=== PATIENT | female | born 1980 | race Caucasian/White ===

== ENCOUNTER 2020-10-14 10:59 | Emergency (ER) | payer MEDICARE ==
[~2020-10-14 10:59] MED LIST: ADVAIR 500-501 EACH INH; AIMOVIG AU70 MG/1 ML SC; BIOTIN5000 MCG PO; CARTIA XT180 MG PO; CELEXA10 MG PO; CELEXA20 MG PO; CITRACAL + D E1 EACH PO; CYMBALTA60 MG PO; DULERA 100 MCG8.8 GM PO; DULOXETINE HCL30 MG PO; FLEXERIL10 MG PO; GABAPENTIN300 MG PO; MAG-OXIDE 400M400 MG PO; MONTELUKAST SOD10 MG PO; NUCALA100 MG SC; PANTOPRAZOLE SO40 MG PO; PERCOCET 5-3251 EACH PO; PREDNISONE 20MG20 MG PO; PRENATAL FORMU1 EACH PO; PROTONIX 40MG T40 MG PO; RIZATRIPTAN10 M1 PO; SPIRIVA RESPIMAT4 G1 PO; THEOPHYLLINE 3300 MG PO; TOPAMAX50 MG PO; TOPIRAMATE ER150 MG PO; VENTOLIN (2.5 MG/3 M INH; VENTOLIN (2.5 MG/3 M PO; VITAMIN B122500 MCG PO; VITAMIN D350 MC3 PO; WELLBUTRIN SR150 MG PO; WELLBUTRIN XL300 MG PO; WELLBUTRIN75 MG PO; ZYRTEC10 M3 PO
[2020-10-14 11:40] LABS: BASOPHIL 0.8 % (0-2); EOSINOPHIL 0.9 % (0-5); HCT 39.2 % (37.0-47.0); HGB 13.1 g/dl (12.5-16.0); LYMPHOCYTE 39.1 % (15-48); MCH 31.6 pg (25.0-31.0); MCHC 33.4 g/dL (32.0-36.0); MCV 94.5 fL (78.0-100.0); MONOCYTE 6.4 % (0-12); MPV 10.3 fL (6.0-9.5); NEUTROPHIL 52.5 % (41-80); NRBC 0; PLT 229 K/uL (150-400); RBC 4.15 M/uL (4.20-5.40); RDW 11.7 % (11.5-14.0); WBC 8.8 K/uL (4.0-10.5)
[2020-10-14 11:51] LABS: ALBUMIN 3.5 g/dL (3.4-5.0); BILIRUBIN - TOTAL 0.2 mg/dL (0.2-1.0); BUN/CREAT RATIO (CALC) 9.9 RATIO; CREATININE 0.71 mg/dL (0.51-0.95); GLOBULIN (CALCULATION) 3.4 g/dL; POTASSIUM 3.6 mmol/L (3.5-5.1); TOTAL PROTEIN 6.9 g/dL (6.4-8.2)
[2020-10-14 12:32] LABS: BILIRUBIN NEGATIVE (NEGATIVE); BLOOD NEGATIVE Ery/uL (NEGATIVE); CLARITY CLEAR (CLEAR); COLOR YELLOW (YELLOW); GLUCOSE (U) NORMAL (NORMAL); LEUKOCYTES NEGATIVE Leu/uL (NEGATIVE); NITRITE NEGATIVE (NEGATIVE); PROTEIN NEGATIVE (NEGATIVE); SPECIFIC GRAVITY 1.015 (1.001-1.030); UROBILINOGEN 0.2 mg/dL (0.2-1.0); pH 7.5 (5.0-9.0)
[2020-10-14] MEDS ORDERED: ZOFRAN4 M1 PO (16:02)
== END 2020-10-14 16:15 | disposition home or self-care (01) ==
LOC: FER 10:59
PROVIDERS: Emergency Medicine
DX: G89.18 Other acute postprocedural pain (principal); R10.9 Unspecified abdominal pain; R11.2 Nausea with vomiting, unspecified; N83.202 Unspecified ovarian cyst, left side; J45.909 Unspecified asthma, uncomplicated; Z90.49 Acquired absence of other specified parts of digestive tract; Z90.710 Acquired absence of both cervix and uterus; Z87.19 Personal history of other diseases of the digestive system; Z98.84 Bariatric surgery status; Z88.8 Allergy status to other drugs, medicaments and biological substances
CPT/HCPCS: 36415; 80053; 81003; 82150; 83690; 85025; J1885; J2405; Q9967

== ENCOUNTER 2021-04-15 00:54 | Emergency (ER) | payer OTHER, MEDICARE ==
[~2021-04-15 00:54] MED LIST changes: +ZOFRAN4 M1 PO
[2021-04-15 01:29] LABS: HCT 41.9 % (37.0-47.0); HGB 13.9 g/dl (12.5-16.0); MCH 31.5 pg (25.0-31.0); MCHC 33.2 g/dL (32.0-36.0); MPV 9.9 fL (6.0-9.5); RBC 4.41 M/uL (4.20-5.40); RDW 11.6 % (11.5-14.0); WBC 9.7 K/uL (4.0-10.5)
[2021-04-15 01:46] LABS: ALBUMIN 3.5 g/dL (3.4-5.0); BILIRUBIN - TOTAL 0.1 mg/dL (0.2-1.0); BUN/CREAT RATIO (CALC) 12.8 RATIO; CREATININE 0.78 mg/dL (0.51-0.95); GLOBULIN (CALCULATION) 3.5 g/dL; POTASSIUM 3.5 mmol/L (3.5-5.1)
== END 2021-04-15 02:15 | disposition home or self-care (01) ==
LOC: FER 00:54
PROVIDERS: Emergency Medicine
DX: M25.511 Pain in right shoulder (principal); M79.641 Pain in right hand; J45.909 Unspecified asthma, uncomplicated; Z88.8 Allergy status to other drugs, medicaments and biological substances; V40.5XXA Car driver injured in collision with pedestrian or animal in traffic accident, initial encounter; Y92.410 Unspecified street and highway as the place of occurrence of the external cause
CPT/HCPCS: 36415; 71045; 73030; 73130; 80053; 83690

== ENCOUNTER 2022-02-01 20:26 | Emergency (ER) | payer MEDICARE | END 2022-02-01 21:28 | disposition home or self-care (01) | LOC: FER 20:26 | DX: O90.0 Disruption of cesarean delivery wound (principal); Z88.1 Allergy status to other antibiotic agents; Z88.5 Allergy status to narcotic agent; Z88.8 Allergy status to other drugs, medicaments and biological substances | CPT/HCPCS: 99283 ==